=== PATIENT | male | born 1995 | race Hispanic/Latino ===

== ENCOUNTER 2022-04-08 10:14 | Emergency (ER) | payer OTHER ==
[~2022-04-08] VITALS: Ht 180.3 cm; Wt 82.6 kg
[2022-04-08 10:16] VITALS: BP 123/84
[2022-04-08] MEDS ORDERED: LIDOCAINE HCL-MPF 2% 5ML VIAL ONE (12:39)
[2022-04-08] MEDS ORDERED: CEPH500B PO (12:57)
[2022-04-08] MEDS ORDERED: CEPHALEXIN 500 MG CAPSULE PO ONE (13:00)
[2022-04-08] MEDS ORDERED: LIDOCAINE HCL 1% 20 ML VIAL INJ SCH (13:00)
== END 2022-04-08 13:09 | disposition home or self-care (01) ==
LOC: EDH 10:14
DX: S61.411A Laceration without foreign body of right hand, initial encounter (principal); X58.XXXA Exposure to other specified factors, initial encounter; Y93.89 Activity, other specified; Y92.89 Other specified places as the place of occurrence of the external cause; Y99.8 Other external cause status
CPT/HCPCS: 99283; 12001; J3490